=== PATIENT | female | born 1975 | race Caucasian/White ===

== ENCOUNTER → 2023-07-13 12:30 | Outpatient (REF) | payer BC, SELFPAY | LOC: WDC 12:30 | PROVIDERS: ATTENDING PHYSICIAN Surgery; FAMILY PHYSICIAN Internal Medicine | DX: E04.1 Nontoxic single thyroid nodule (principal); Z12.31 Encounter for screening mammogram for malignant neoplasm of breast | CPT/HCPCS: 76536; 77063; 77067 ==

== ENCOUNTER → 2024-02-13 20:23 | Outpatient (REF) | payer BC, SELFPAY | LOC: MRI 3T 20:23 | PROVIDERS: ATTENDING PHYSICIAN Surgery; FAMILY PHYSICIAN Family Medicine | DX: Z15.09 Genetic susceptibility to other malignant neoplasm (principal) | CPT/HCPCS: 77049; A9585 ==

== ENCOUNTER → 2024-08-20 11:35 | Outpatient (REF) | payer BC, SELFPAY | LOC: WDC 11:35 | PROVIDERS: ATTENDING PHYSICIAN Surgery; FAMILY PHYSICIAN Family Medicine | DX: Z12.31 Encounter for screening mammogram for malignant neoplasm of breast (principal) | CPT/HCPCS: 77063; 77067 ==